=== PATIENT | male | born 1975 | race Hispanic/Latino ===

== ENCOUNTER 2017-10-14 15:28 | Emergency (ER) | payer OTHER, SELFPAY ==
[2017-10-14] MEDS ORDERED: NA CHLORIDE 0.9% 1,000 ML ONE (16:13)
[2017-10-14 16:22] LABS: Absolute Lymphocytes (CBC) 1.2 K/uL (0.7-4.9); Absolute Monocytes 1.3 K/uL (0.1-1.3); Absolute Neutrophil 13.5 K/uL (1.8-8.0); Basophils % 0.2 % (0-1.3); Eosinophils % 0.2 % (0-4.4); Hematocrit 47.8 % (39.6-49.0); Lymphocytes % 7.2 % (15.3-44.8); MCH 28.3 pg (27.0-35.0); MCV 87.1 fL (80-100); Monocytes % 8.2 % (3.3-12.3); RBC Red Blood Cell Count 5.49 M/uL (4.33-5.43)
[2017-10-14 16:33] LABS: Potassium 3.8 mEq/L (3.6-5.0)
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
[2017-10-14] MEDS ORDERED: KETOROLAC 30 MG/ML INJ ONE (19:37)
[2017-10-14 20:20] VITALS: TEMP 98.9
[2017-10-14 20:25] VITALS: O2SAT 97
[2017-10-14 20:26] VITALS: BP 142/104
== END 2017-10-14 20:17 | disposition home or self-care (01) ==
LOC: ER 15:28
DX: S00.93XA Contusion of unspecified part of head, initial encounter (principal); S40.022A Contusion of left upper arm, initial encounter; S20.229A Contusion of unspecified back wall of thorax, initial encounter; Y04.2XXA Assault by strike against or bumped into by another person, initial encounter; Y93.9 Activity, unspecified; Y92.9 Unspecified place or not applicable
CPT/HCPCS: 36415; 70450; 70486; 71260; 72125; 74177; 76377; 80048; 85025; 86850; 86900; 86901; 96361; 96374; 99285; J7030